=== PATIENT | male | born 1985 | race African-American/Black ===

== ENCOUNTER 2018-05-06 20:26 | Inpatient (IN) | payer OTHER ==
[~2018-05-06] VITALS: Ht 182.9 cm; Wt 81.4 kg
--- NOTE | ~2018-05-06 | CON ---
[address] [address] CONSULTATION Name: DREW RADFORD Room: [address] IN M.R.#: [id number] Admission: 05/06/18 Attend Phys: Mikal Orlando MD Discharge: Date of : 87 Report #: [id number] THIS REPORT FOR: //name// CC: [facility] physician/PCP Mikal Orlando DATE OF SERVICE: 05/07/2018 CHIEF COMPLAINT: Out of hospital arrest. HISTORY OF PRESENT ILLNESS: The patient is a 32-year-old -Greenlandic male who is brought to the Emergency Room, found down. The patient was found by his girlfriend because she heard him with agonal breathing. He was covered in emesis. He was intubated in the field and has been in the ICU with significant hypotension, unresponsive to numerous pressor agents at the time of this dictation. Currently, the patient is on broad spectrum antibiotics, epinephrine, Levophed, vasopressin, hydrocortisone, phenylephrine and dopamine with systolic pressures in the 90s and bradycardia in the 60s. A bedside echo was performed by myself, which did not reveal evidence of pericardial effusion and grossly normal LV systolic function. He has no documented history of heart disease. His presenting ECG shows a narrow QRS with a short WI interval, but no delta wave and normal QRS morphology. His tox screen was positive for the following, amphetamine, cocaine and marijuana. Serum alcohol is less than 10. SOCIAL HISTORY: Positive drug use, unmarried, full code. FAMILY HISTORY: Not available. REVIEW OF SYSTEMS: Not obtainable. PHYSICAL EXAMINATION: VITAL SIGNS: Blood pressure is 86/30 with a pulse of 61. O2 sat on the ventilator is 96%. He is not triggering the ventilator on his own. GENERAL: This is a young male, intubated, unresponsive. HEENT: There is no evidence of trauma. Eyes, fixed and unresponsive. NECK: There is no jugular venous distention. CARDIOVASCULAR: Regular. I cannot hear a murmur or S3. LUNGS: Coarse breath sounds. ABDOMEN: Nontender. EXTREMITIES: No peripheral edema. Distal extremities are cool. NEUROLOGIC: [place] [address] CONSULTATION Name: DREW RADFORD Room: [address] IN [facility]#: [id number] Admission: 05/06/18 Attend Phys: Mikal Orlando MD Discharge: Date of : 86 Report #: [id number] LABORATORY DATA: Electrocardiogram as noted above. Hemoglobin is 14.6, white blood count 17.5, platelet count 324,000. INR is 0.9. Sodium is 138, potassium 3.6, chloride 105, CO2 is 23, BUN is 20, creatinine is 2.3 and glucose was 219. Lactic acid is 1.6. Phosphorus is 3.6. Troponin I is 0.06. BNP is 8. Chest x-ray shows tubes and lines appear in good condition. There is no evidence of infiltrate or effusion. IMPRESSION: 1. Hypotension. He is not responding to pressor agents and has grossly hyperdynamic LV systolic function on echocardiogram. Etiology of this is probably centrally related to an anoxic brain injury. I would continue supportive care, but overall his outlook is poor. 2. Substance abuse. 3. Hypotension. I will continue with broad spectrum antibiotics. Overall, the patient's prognosis is poor. We will follow along for supportive care, but there are no further coronary procedures being planned at this time. By: 1045 [id number] Youssef MD, [facility] /nt
--- NOTE | ~2018-05-06 | CON ---
[address] [address] CONSULTATION Name: DREW RADFORD Room: [address] IN M.R.#: [id number] Admission: 05/06/18 Attend Phys: Mikal Orlando MD Discharge: 05/08/18 Date of : 86 Report #: [id number] THIS REPORT FOR: //name// CC: [facility] physician/PCP Mikal Orlando DATE OF SERVICE: 05/07/2018 CONSULTATION: Infectious Disease. HISTORY OF PRESENT ILLNESS: The patient is a 32-year-old -Palauan male who was admitted to [facility] on 05/06/2018 with depressed mental status. The chart notes, the patient's girlfriend noted the patient to be in normal mental status around 6:00 p.m. the evening of admission. They went to sleep and she awakened a couple of hours later finding the patient unresponsive and "gurgling." EMS was called and they arrived and noted emesis around the mouth of the patient. He was found to be unresponsive. He was brought to the hospital and arrived at 8:25 approximately 2-1/2 hours after he was last seen to be normal. In the ER, he was intubated to protect the airway. After intubation, the patient has had autonomic instability with significant hypothermia, hypotension, bradycardia and continued unresponsiveness. Infectious Disease consultation was requested to assist with ruling out possible septic causes of the patient's ongoing illness. PAST MEDICAL HISTORY: Unremarkable. SOCIAL HISTORY: According to the girlfriend, the patient went out to "libertarian" with his friends the night before his arrest. However, he came back and was in apparently normal health until he was found unresponsive. I have no past history, family history or other social history. The girlfriend says she is not aware of any use of tobacco, alcohol or drugs. REVIEW OF SYSTEMS: Unavailable as the patient is unresponsive on a ventilator. PHYSICAL EXAMINATION: GENERAL: The patient appears to be resting comfortably, but not arousable. VITAL SIGNS: Show his temperature is ranging from 34.6-36.2. Blood pressure was as low as 70/38 and now up to 98/31 with 3 pressors. His pulse is 49. SKIN: Shows no rash, lesion or exanthem. There is tattoo on the left arm. ENT: Negative. HEENT: Pupils are fixed, mid position and staring straight ahead. The patient is not following any commands. Oral cavity is normal. NECK: No adenopathy. HEART: Sounds S1, S2. LUNGS: Clear [place] [address] CONSULTATION Name: DREW RADFORD Gustabo Room: [address] IN M.R.#: [id number] Admission: 05/06/18 Attend Phys: Mikal Orlando MD Discharge: 05/08/18 Date of : 86 Report #: [id number] ABDOMEN: Belly is somewhat distended and tympanitic, but soft and nontender. EXTREMITIES: Unremarkable. The patient noted intermittent twitches which would involve his feet and sometimes his entire body. This would occur about every 20-60 seconds. NEUROLOGIC: He was otherwise not responsive and flaccid. LABORATORY DATA: White count has gone from 9.6-17.5, hemoglobin 14.6, hematocrit 44%, platelets 324,000. Electrolytes: Sodium 138, potassium 3.6, chloride 105, bicarb 23, BUN 20, creatinine has gone from 1.8 to 2.3, glucose 219. Liver function tests are normal. Troponin is normal. BNP is normal. The blood gas on 45% on the ventilator showed pH 7.33, pCO2 of 37, pO2 102. Urine drug screen was positive for cocaine, methamphetamine and THC. Chest x-ray is negative. CT scan shows some sinusitis. Blood cultures are negative. EEG shows burst and suppression pattern. The burst seem to correlate with the twitches which are seen grossly. ASSESSMENT AND PLAN: In summary, the patient essentially was found down 2 hours after being normal. It is notable that although the girlfriend denies any knowledge of drug use, the patient's urine drug screen was positive for cocaine, methamphetamine and THC. At this time, I suspect the patient's problem is primarily neurological, may be related to drug, seizure, post-seizure or possibly an anoxic event related to one of the above. The chest x-ray does not really show pneumonia, although aspiration pneumonia can often a take while to develop on radiographs. I would suggest that we simplify the antibiotics from vancomycin, Zosyn, Levaquin to just Zosyn. This had offered good coverage for pathogens-associated with aspiration. If the patient does not develop any other signs of aspiration, pneumonia such as fever, chest x-ray changes, etc., we may consider stopping the antibiotics in the next day or so. I would like to take advantage of the endotracheal tube to obtain sputum for culture. We will check an HIV since this is a young man with an unexplained illness. We want to do a followup chest x-rays as well as urine cultures, sputum culture. I wonder if it maybe worthwhile to have a forensic anthropologist look for some substances other than the typical drug found on the drug panel. There might be a foreign sepsis, which could cause the patient's severe neurological changes. I have asked the opportunity to offer infections input in the care of this gentleman. I suspect that his prognosis is mostly limited by his neurological recovery, which is probably the primary insult in this situation. However, we will look for secondary infections and make sure they do not complicate things further. Dr. Guardado will return tomorrow and assume follow up [place]ious [place] [address] CONSULTATION Name: DREW RADFORD Gustabo Room: [address] IN [facility].#: [id number] Admission: 05/06/18 Attend Phys: Mikal Orlando MD Discharge: 05/08/18 Date of : 86 Report #: [id number] Thank you for this consultation. By: 0139 [id number] Ordoñez MD /augustin
[2018-05-06 20:41] VITALS: BP 79/38
[2018-05-06 21:03] LABS: URINE BLOOD NEGATIVE (Negative); URINE CLARITY CLEAR; URINE COLOR YELLOW; URINE GLUCOSE-RANDOM NEGATIVE (Negative); URINE KETONES TRACE (Negative); URINE LEUKOCYTES-REFLEX NEGATIVE (Negative); URINE NITRITE-REFLEX NEGATIVE (Negative); URINE PROTEIN NEGATIVE (Negative); URINE SPECIFIC GRAVITY >= 1.030 (1.005-1.030); URINE UROBILINOGEN 0.2 E.U./dl (0.2-1.0)
[2018-05-06 21:07] LABS: ICTOTEST (BILI CONFIRMATORY) Negative (Negative); URINE BILIRUBIN 1+ (Negative)
[2018-05-06 21:11] LABS: ABSOLUTE BASOPHILS 0.1 thou/uL (0.0-0.2); ABSOLUTE EOSINOPHILS 0.4 thou/uL (0.0-0.7); ABSOLUTE LYMPHOCYTES 2.8 thou/uL (0.8-5.3); ABSOLUTE NEUTROPHILS 5.4 thou/uL (1.6-8.1); BASOPHILS 0.9 %; EOSINOPHILS 3.8 %; HEMOGLOBIN 16.9 gm/dL (14.0-18.0); LYMPHOCYTES 28.6 %; MCH 29.7 pg (26.0-34.0); MCHC 33.1 g/dL (28.0-37.0); MCV 89.7 fL (80.0-100.0); MONOCYTES 10.1 %; MPV 9.6 fl. (7.2-11.1); NUCLEATED RBCS 0 /100WBC; PLATELET COUNT* 335 thou/uL (150-400); POLYS 56.6 %; RBC 5.69 mil/uL (4.50-6.00); RDW-CV 15.7 % (10.5-14.5); WBC 9.6 thou/uL (4.0-11.0)
[2018-05-06 21:19] LABS: SALICYLATE 4.1 mg/dL (2.8-20.0)
[2018-05-06 21:20] LABS: ANION GAP 8 mmol/L (7-16); BUN 16 mg/dL (7-18); CALCIUM 8.9 mg/dL (8.5-10.1); CHLORIDE 104 mmol/L (98-107); CO2 26 mmol/L (21-32); CREATININE 1.8 mg/dL (0.6-1.3); GLUCOSE 100 mg/dL (70-99); POTASSIUM 3.8 mmol/L (3.5-5.1); SODIUM 138 mmol/L (136-145); TROPONIN-I LEVEL <0.06 ng/mL (<0.06)
[2018-05-06 21:21] LABS: ALBUMIN 3.6 g/dL (3.4-5.0); ALKALINE PHOSPHATASE 91 U/L (46-116); NT-PRO BRAIN NAT PEPTIDE 8 pg/mL (<300); SGOT 22 U/L (15-37); SGPT 26 U/L (30-65); TOTAL BILIRUBIN 0.6 mg/dL (<0.1-1.0); TOTAL PROTEIN 7.2 g/dL (6.4-8.2)
[2018-05-06 21:24] LABS: ACETAMINOPHEN < 2 ug/mL (10-30); ALCOHOL < 10 mg/dL (<10); AMP/METHAMP POSITIVE (Negative); BARBITURATES Negative (Negative); BENZODIAZEPINES Negative (Negative); COCAINE POSITIVE (Negative); METHADONE Negative (Negative); OPIATES Negative (Negative); PCP Negative (Negative); THC POSITIVE (Negative)
[2018-05-06 21:37] LABS: PCO2 38.3 mmHg (35.0-45.0)
[2018-05-06 21:39] LABS: PO2 369.4 mmHg (75.0-100.0); pH 7.269 (7.340-7.450)
[2018-05-06 21:43] LABS: INR 0.9; PROTIME 9.7 Seconds (9.20-11.50)
--- NOTE | 2018-05-06 22:03 | NUR ---
LAB AT BEDSIDE
[2018-05-06 23:30] VITALS: BP 101/57
[2018-05-07] VITALS (196 sets, daily range): BP systolic 69–114; BP diastolic 24–62
--- NOTE | 2018-05-07 00:08 | NUR ---
ADMITTED FROM ER UNRESPONSIVE ON THE VENTILATOR. NO FAMILY PRESENT. SISTER KEN CALLED. SHE WAS ABLE TO STATE PATIENT'S NAME, , SOME HISTORY BUT UNFAMILIAR OF RELATIONSHIP WITH GIRLFRIEND/BABY'S MOM. UNABLE TO ANSWER ALL ADMIT QUESTIONS D/T NO INFORMATION. HX OF OD WITH SUICIDAL INTENT. REPORTED TO DR WYMAN NO PUPIL REACTION, HYPOTHERMIA AND DROPPING BP, ORDERS RECEIVED REPORTED ADMIT TO DR. ALEXANDRA, ORDERS RECEIVED.
--- NOTE | 2018-05-07 06:45 | NUR ---
NOT PROGRESSING TOWARDS GOALS. NOW ON 3 PRESSORS BUT STILL HYPOTENSIVE. DR WYMAN AWARE OF NO REFLEXES. MTN NOTIFIED.
[2018-05-07 09:10] LABS: PCO2 37.3 mmHg (35.0-45.0)
[2018-05-07 09:12] LABS: BE -6.2 mmol/L (-2 to +3); PO2 102.3 mmHg (75.0-100.0); pH 7.327 (7.340-7.450)
--- NOTE | 2018-05-07 14:10 | EKG ---
[place] [address] ELECTROCARDIOGRAM REPORT Name: DREW RADFORD Room: [address] ADM IN .R.#: [id number] Admission: 05/06/18 Attend Phys: Mikal Orlando MD Discharge: Date of : 86 Report #: [id number] THIS REPORT FOR: //name// [facility] ED Test Date: 2018-05-06 Test Time: 22:29:42 Pat Name: DREW RADFORD Department: Room: [facility] Gender: M Music Director: : 1985 Requested By: Ingris Boothe Order Number: [id number] MD: Rahul Youssef Measurements Intervals [place]ows Rate: 71 P: 253 NH: 72 QRS: 66 QRSD: 75 T: 10 QT: 439 QTc: 478 Interpretive Statements Sinus or ectopic atrial rhythm Short NH interval Borderline repolarization abnormality Borderline prolonged QT interval No previous ECG available for comparison Electronically Signed On 05-07-2018 14:09:52 WASHER AND CRUSHER TENDER by Rahul Youssef [email or web address] <ELECTRONICALLY SIGNED> By: Rahul Youssef MD, [facility] 05/07/18 1409 2229 28 Rahul Youssef MD, [facility] /EPI
--- NOTE | 2018-05-07 16:23 | NUR ---
PT CARE ASSUMED AFTER REPORT. ASSESSMENTS COMPLETE. SR AT THE BEGINNING OF THE SHIFT DOWN TO SB TIME PROGRESSED. PT ON NUMOROUS PRESSERS INCLUDING LEVO, MARIJA, DOPAMINE AND EPI WITH A BP CURRENTLY 95/31 AND HR 48. PT REMAINS ON VENTILATOR WITH NO SEDATION. WAS FINALLY ABLE TO CONTACT FAMILY/GIRLFRIEND. GIRLFRIEND AND THE PT SON CAME TO VISIT. GIRLFRIEND REPORTS THAT THE PT HAD BEEN OUT WITH A FRIEND. HE CAME HOME AND THEY WERE LYING IN BED WATCHING A MOVIE WHEN THE PT FELL ASLEEP. GIRLFRIEND, CUCO, REPORTS THAT SHE HEARD HIM "GURGLING" AND ATTEMPTED TO WAKE HIM UP. HE DID NOT WAKE UP SO ROSAMARIA' MOTHER AND BROTHER ATTEMPTED TO WAKE HIM. WHEN HE DID NOT RESPOND CUCO CALLED EMS. CUCO ALSO REPORTS THE PT MAY HAVE TAKEN SOME MUSCLE RELAXERS WHILE OUT WITH HIS FRIEND. PT FAMILY CAME INCLUDING -SISTER, AND TONE-BROTHER. REPORTS THAT CUCO IS NOT TO HAVE ANY MORE INFORMATION ON THE PT AND THAT SHE IS NOT ABLE TO VISIT. SECURITY NOTIFIED. NO S/S OF PAIN. NOT PROGRESSING TOWARDS GOALS. PT WITH JERKING MOTIONS. DR MEJIA DOES NOT BELEIVE THEY ARE SEIZURES. HE HAD AN EEG TODAY THAT SHOWED BURST SUPRESSION. PT TO HAVE A REPEAT EEG TOMARROW.
[2018-05-07 17:48] LABS: INR 1.1; PROTIME 11.3 Seconds (9.20-11.50)
[2018-05-07 20:47] LABS: URINE BILIRUBIN 2+ (Negative); URINE BLOOD 3+ (Negative); URINE CLARITY CLEAR; URINE COLOR YELLOW; URINE GLUCOSE-RANDOM NEGATIVE (Negative); URINE KETONES TRACE (Negative); URINE LEUKOCYTES-REFLEX NEGATIVE (Negative); URINE NITRITE-REFLEX NEGATIVE (Negative); URINE PROTEIN 2+ (Negative); URINE SPECIFIC GRAVITY >= 1.030 (1.005-1.030)
[2018-05-07 20:49] LABS: ICTOTEST (BILI CONFIRMATORY) Negative (Negative)
[2018-05-07 21:18] LABS: BACTERIA-REFLEX 1-9 Few /HPF (None Seen); CASTS None Seen /LPF (None Seen); CRYSTALS None Seen /LPF (None Seen); SQUAMOUS 0-3 Few /LPF (0-3); URINE RBC 0-2 Rare /HPF (0-2); URINE WBC-REFLEX 0-5 Rare /HPF (0-5)
--- NOTE | 2018-05-07 22:04 | NUR ---
SPOKE TO AMNA AT POISON CONTROL. NO NEW INFO TO BE SHARED
[2018-05-08] VITALS (10 sets, daily range): BP systolic 92–119; BP diastolic 31–41
--- NOTE | 2018-05-08 01:18 | NUR ---
PATIENT REMAINS ON ALL PRESSORS. INTUBALTED, RED, FROTHY SPUTUM NOTED AT APPROX 0100. RN ASSESSMENTS SOCUMENTED. TWITCHING IN BILATERAL FEET STILL NOTED. HR REMAINS BREADY WITH A BBB. BP HAS GONE UP THROUGH THE SHIFT AND IS NOW TRENDING BETWEEN 120-135 SYSTOLIC AND 35-45 DIASTOLIC WITH A MAP >60. MAGALLANES CATH IN PLACE AND DRAINING VERY SMALL AMOUNT OF CLOUDY, YELLOW URINE. SETTING OS VENT ADJUSTED BY RT R/T PATIENT STATUS.
--- NOTE | 2018-05-08 02:00 | NUR ---
HEPARIN GTT HELD AT 0152
--- NOTE | 2018-05-08 04:00 | NUR ---
PULMONARY CONTACTED AT 0335- NEW ORDERS RECEIVED CHANGE PEEP TO 12 CHANGE RATE TO [address] ORTEZ AT 0352 SISTERPRINCESS- CONTACTED AT 0355- UPDATED ON STATUS
--- NOTE | 2018-05-08 04:52 | NUR ---
SPOKE TO RN URGENT CARE PHYSICIAN AT 424- NO NEW ORDERS MTN NOTIFIED OF CHANGE- 404, SPOKE TO SEKOU
--- NOTE | 2018-05-08 05:31 | NUR ---
EKG COMPLETED BY RN R/T RHYTHM CHANGE. EKG TAKEN TO ED TO BE READ BY ER DOC.' CARDIOLOGY NOTIFIED. MTN UPDATED
--- NOTE | 2018-05-08 10:20 | NUR ---
PT SUDDENLY BECAME ASSYSTOLE AT 0834 THEN CODE BLUE WAS ACTIVATED AND CPR STARTED. CODE STOP AT 0852 AND PT PRONOUNCE .SEE PHYSICAL CHART FOR CODE SHEET. FAMILY ONSITE, INFORMED. DYNAMOMETER MECHANIC AND MTN INFORMED. AWITING DYNAMOMETER MECHANIC DECISION FOR POSSIBLE AUTOPSY. EYE CARE PERFORMED FOR POSSIBLE DONATION.
--- NOTE | 2018-05-08 10:30 | NUR ---
SPOKE BRIEFLY WITH THE FAMILY THEY WERE LEAVING. THEY SAID THAT IF WE NEEDED ANYTHING TO CALL KEITH ([phone]), 'SHE'S THE OLDEST, SHE CAN MAKE THE DECISIONS.' THEY SAID IF WE CAN'T REACH KEITH TO CALL HIS OTHER SISTER . FAMILY THAT WAS HERE SAID THEY DIDN'T HAVE ANY OTHER QUESTIONS. THEY LEFT THE HOSPITAL.
[2018-05-08 12:08] LABS: HIV-1/HIV-2 ANTIBODY Non Reactive (Non Reactive)
--- NOTE | 2018-05-08 12:50 | EEG ---
[address] [address] EEG STUDY REPORT Name: DREW RADFORD Gustabo Room: [address] IN M.R.#: [id number] Admission: 05/06/18 Attend Phys: Mikal Orlando MD Discharge: Date of : 86 Report #: [id number] THIS REPORT FOR: //name// CC: [facility] physician/PCP Mikal Orlando The patient is a 32-year-old male who was found down at home. An EEG is requested for further evaluation. The patient is currently on levetiracetam 500 mg b.i.d. He has had some intermittent jerking of the feet. DESCRIPTION: The record consists of burst of bilaterally synchronous diffuse spike and wave activity lasting anywhere from 1-3 or 4 seconds. Sometimes these bursts of activity are accompanied by jerking of the left foot or sometimes both feet. This is followed by periods of suppression, lasting anywhere from 1-7 or 8 seconds. No clear seizure activity was noted on the EEG. IMPRESSION: This is an abnormal adult record consistent with a burst suppression pattern. This type of pattern can be seen in severe encephalopathy. There was no evidence of subclinical seizure activity. The bursts of activity were accompanied by twitch of the foot. <ELECTRONICALLY SIGNED> By: Eneida Rondon DO 05/08/18 1250 1324 [id number] Rondon DO /[place]
--- NOTE | 2018-05-08 12:51 | CON ---
[address] [address] CONSULTATION Name: DREW RADFORD Room: [address] IN M.R.#: [id number] Admission: 05/06/18 Attend Phys: Mikal Orlando MD Discharge: Date of : 86 Report #: [id number] THIS REPORT FOR: //name// CC: [facility] physician/PCP Mikal Orlando HISTORY OF PRESENT ILLNESS: The patient is a 32-year-old male who was found unresponsive by his girlfriend. The patient went to sleep around 6 p.m. When she heard gurgling noises, she was unable to wake him. EMS stated that the patient was covered in vomit. Apparently, the patient has not been sleeping well and had gone out with friends the previous evening. He drank alcohol, but she was unaware of any other drug use. The toxicology screen was positive for methamphetamines, cocaine and marijuana. The patient is currently in the ICU. Apparently both of his parents have . He may have one sister living. PAST MEDICAL HISTORY: Unknown. PAST SURGICAL HISTORY: Unknown. MEDICATIONS: None. ALLERGIES: Unknown. VITAL SIGNS: Temperature 36.4 axillary, pulse rate 61, respiratory rate 16, blood pressure 86/28, bedside pulse oximetry 96% on the ventilator. LABORATORY DATA: Hematology: White blood cell count 17.5, hemoglobin 14.6, hematocrit 44.6, MCV 89.1 and platelet count 324,000. Urinalysis, trace ketones and 1+ bilirubin. Chemistry: Sodium 134, potassium 3.6, chloride 105, carbon dioxide 23, BUN 20, creatinine 2.3, GFR 40, glucose 219, calcium 7.7, phosphorus 3.6, magnesium 2. Liver functions normal. IMAGING STUDIES: CT scan of the head demonstrates no acute abnormality. NEUROLOGIC EXAMINATION: Pupils were difficult to assess. Oculocephalic reflex was absent. Corneal reflex was present. There were spontaneous jerking movements of the extremities, although these movements were very intermittent. Reflexes are trace. Plantar responses are mute. IMPRESSION: This patient does have some brainstem function. An EEG is going to be done. I suspect the patient has had a significant anoxic injury. However, it is difficult to know the final outcome in this case. I will ask Dr. Gaspar to follow [place] [address] CONSULTATION Name: MALINABRAVOMarguerite Montejo Room: [address] IN [facility]#: [id number] Admission: 05/06/18 Attend Phys: Mikal Orlando MD Discharge: Date of : 86 Report #: [id number] I thank you for your kind referral of the patient. <ELECTRONICALLY SIGNED> By: Eneida Rondon DO 05/08/18 1251 1129 [id number] Ivy Rondon DO /nt
--- NOTE | 2018-05-08 14:01 | NUR ---
0910 NOTIFIED LINCOLN WEDDING COORDINATOR (DR WINSTON) OF PATIENT'S AT HE REQUESTED RECORDS AND REQUESTED THE FAMILY CALL THE WEDDING COORDINATOR'S OFFICE. I GAVE THE WEDDING COORDINATOR'S NUMBER TO BROTHER, AND HE SAID HE CALLED. ENTIRE MEDICAL RECORD FAXED TO DR. WINSTON. [facility] ALSO NOTIFIED AND PATIENT IS A POTENTIAL CANDIDATE FOR DONATION. 1020 CONTACTED SUNIL AT THE WEDDING COORDINATOR OFFICE TO INFORM HER THAT SHE SHOULD BE RECEIVING RECORDS AND NOTIFY THAT PATIENT IS A POSSIBLE MTN CANDIDATE. SHE IS CHECKING WITH DR. WINSTON ABOUT THE RECEIPT OF RECORDS. 1156 CONTACTED SUNIL AT THE WEDDING COORDINATOR OFFICE, AND SHE SAID THAT HE HAD NOT RECEIVED ALL OF THE RECORDS. 1310 SPOKE WITH SUNIL AT THE WEDDING COORDINATOR'S OFFICE. THEY RECEIVED THE RECORDS AND DR WINSTON IS REVIEWING THEM. SHE EXPLAINED BURIAL OPTIONS AND SAID SHE WILL NOTIFY ME WITH DR. WINSTON'S DECISION. 1350 SUNIL WITH THE [place] OFFICE NOTIFIED ME THAT NO AUTOPSY WILL BE PERFORMED, BUT DR WINSTON WILL SIGN THE CERTIFICATE. 1400 SPOKE WITH KEITH (SISTER). SHE SAID THE FAMILY DECLINED AUTOPSY. INFORMED HER THAT DR WINSTON THE WEDDING COORDINATOR WILL SIGN THE CERTIFICATE. EXPLAINED OPTION OF ASSUMING RESPONSIBILITY FOR THE BODY OR INDIGENT BURIAL. SHE WANTS TO TALK WITH HER SIBLINGS AND WILL CONTACT ME ABOUT THEIR DECISION. ELECTRONIC COILS SUPERVISOR AND PATIENT'S RN MATTHEW UPDATED THROUGHOUT THE PROCESS.
--- NOTE | 2018-05-08 16:08 | EKG ---
[place] [address] ELECTROCARDIOGRAM REPORT Name: DREW RADFORD Room: [address] ADM IN M.R.#: [id number] Admission: 05/06/18 Attend Phys: Mikal Orlando MD Discharge: Date of : 86 Report #: [id number] THIS REPORT FOR: //name// [facility] Test Date: 2018-05-08 Test Time: 05:12:04 Pat Name: DREW RADFORD Department: Room: [address] Gender: M Inspector Balance Truing: : 1985 Requested By: Mikal Orlando Order Number: [id number] MD: Arvind Mendez Measurements Intervals [place] Rate: 41 P: NJ: QRS: 117 QRSD: 132 T: -29 QT: 396 QTc: 327 Interpretive Statements Junctional rhythm RBBB and LPFB Lateral infarct, acute possible Possible anteroseptal infarct Compared to ECG 05/06/2018 22:29:42 Junctional rhythm now present Left posterior fascicular block now present Right bundle-branch block now present Myocardial infarct finding now present Ectopic atrial rhythm no longer present Short NJ interval no longer present Electronically Signed On 05-08-2018 16:08:40 DRAFTER DETAIL by Arvind Mendez [email or web address] <ELECTRONICALLY SIGNED> By: Arvind Mendez MD, [facility] 05/08/18 1608 1 1 Arvind Mendez MD, [facility] /EPI
--- NOTE | 2018-05-10 07:34 | CON ---
[address] [address] CONSULTATION Name: MALINADREW Gustabo Room: [address] IN M.R.#: [id number] Admission: 05/06/18 Attend Phys: Mikal Orlando MD Discharge: 05/08/18 Date of : 87 Report #: [id number] THIS REPORT FOR: //name// CC: [facility] physician/PCP Mikal Orlando DATE OF SERVICE: 05/07/2018 REASON FOR EVALUATION: Acute respiratory failure. HISTORY OF PRESENT ILLNESS: The patient is a 32-year-old gentleman who was brought to the ED unresponsive. He was at home and family found him unresponsive with vomiting around him. When he was brought to the ED, he was covered with vomiting. The history is limited; however, after initial evaluation he was found to have positive methamphetamine and cocaine. He was intubated subsequently. Since yesterday, the patient has severe shock, currently on pressors, Levophed, dopamine, phenylephrine. Blood pressure remains to be on the low side. He on my examination, he has corneal reflexes and minimally reactive pupils. Other blood work, his white count 17.5 and hemoglobin stable at 14.7. His arterial blood gas initially pH 7.2, pCO2 was 58, pO2 was above 370. This was on 100%. Currently, his vent setting is at 16, AC, 45%, 605 with ABG 7.3, pCO2 of 37 and pO2 102. His further workup showed his natriuretic peptide was normal. Albumin was low at 2.9. Lactic acid 1.6. Creatinine 2.3. Tox screen as above positive for marijuana, cocaine and methamphetamine. ALLERGIES: Unable to assess. FAMILY HISTORY: Unknown. SOCIAL HISTORY: Unknown; however, has a positive drug screen. Reviewed the records and discussed with the nursing and his primary physician, this is the history that we were able to obtain. The patient currently is sedated, intubated. REVIEW OF SYSTEMS: As above, unable to obtain. PHYSICAL EXAMINATION: GENERAL: The patient is sedated. NEUROLOGIC: As above, corneal reflex is positive. Pupils are minimally reactive. He is on 3 pressors. Another pressor is being added as well as vasopressin and stress steroids. VITAL SIGNS: His pulse rate is 86, blood pressure 92/33, respiratory rate 16, O2 saturation 96% on [place] [address] CONSULTATION Name: DREW RADFORD Room: [address]#: [id number] Admission: 05/06/18 Attend Phys: Mikal Orlando MD Discharge: 05/08/18 Date of : 87 Report #: [id number] NECK: Supple. CHEST: Equal and clear to auscultation. CARDIOVASCULAR: Regular rhythm. ABDOMEN: Soft and nontender. EXTREMITIES: No edema. PSYCHIATRIC: Unable to evaluate. LABORATORY DATA: A chest x-ray, which I have reviewed showed no acute infiltrate. Minimal pulmonary vascular congestion. Arterial blood gas as above. ASSESSMENT AND PLAN: 1. Encephalopathy and severe shock. It is not clear what is the etiology of his shock is. It could be septic versus cardiogenic. At this time, recommend to obtain the Cardiology evaluation. He is already on antibiotics with Zosyn. Recommend vancomycin. With severe refractory shock, add vasopressin, may need epinephrine, add stress steroids. 2. Altered mental status. Continue ventilator support until the patient is more stable and encephalopathy improves, consider Neurology consultation. This was discussed with Dr. Orlando. 3. Prognosis apparently is very poor. We will add empiric treatment for aspiration and possible pneumonia, however, this is less likely as his chest x-ray was clear. We will obtain chest x-ray in the morning. Recommend IV fluids as well. Critical care time is 35 minutes. <ELECTRONICALLY SIGNED> By: Adrian Angel MD 05/10/18 0734 0941 2333Asem Moe Klein MD /nt
== END 2018-05-08 08:52 | DRG 871 ==
LOC: M.ERS 20:26 → EDBD 20:26 → M.ICU 21:23 → M.TBA-ER 21:23 → M.ICU 23:21
PROVIDERS: Emergency Medicine; Internal Medicine Infectious Disease; Internal Medicine Pulmonary Disease
PROC: 02HV33Z Insertion of Infusion Device into Superior Vena Cava, Percutaneous Approach (ICD-10-PCS; principal; 2018-05-06)
PROC: 5A1945Z Respiratory Ventilation, 24-96 Consecutive Hours (ICD-10-PCS; principal; 2018-05-06)
PROC: 0BH17EZ Insertion of Endotracheal Airway into Trachea, Via Natural or Artificial Opening (ICD-10-PCS; principal; 2018-05-06)
PROC: 5A12012 Performance of Cardiac Output, Single, Manual (ICD-10-PCS; 2018-05-08)
DX: A41.9 Sepsis, unspecified organism (principal); J96.00 Acute respiratory failure, unspecified whether with hypoxia or hypercapnia; R65.21 Severe sepsis with septic shock; J18.9 Pneumonia, unspecified organism; G93.40 Encephalopathy, unspecified; G93.1 Anoxic brain damage, not elsewhere classified; I46.9 Cardiac arrest, cause unspecified; F14.10 Cocaine abuse, uncomplicated; F15.10 Other stimulant abuse, uncomplicated; F12.10 Cannabis abuse, uncomplicated; G90.8 Other disorders of autonomic nervous system; Z79.899 Other long term (current) drug therapy